=== PATIENT | female | born 1955 | race Hispanic/Latino ===

== ENCOUNTER → 2023-12-16 14:47 | Outpatient (REF) | payer MEDICARE, OTHER, SELFPAY | LOC: MRI 3T 14:47 | PROVIDERS: ATTENDING PHYSICIAN Ophthalmology Neuro-ophthalmology | DX: H47.093 Other disorders of optic nerve, not elsewhere classified, bilateral (principal); I67.1 Cerebral aneurysm, nonruptured | CPT/HCPCS: 70544; 70553; A9575 ==

== ENCOUNTER → 2025-01-25 12:51 | Outpatient (REF) | payer MEDICARE, OTHER, SELFPAY | LOC: HWRAD 12:51 | PROVIDERS: ATTENDING PHYSICIAN Family Medicine | DX: R22.0 Localized swelling, mass and lump, head (principal) | CPT/HCPCS: 76536 ==